=== PATIENT | male | born 2000 | race Caucasian/White ===

== ENCOUNTER 2021-01-04 23:44 | Emergency (ER) | payer BC, SELFPAY ==
[2021-01-04 23:53] VITALS: BP 146/101; PULSE 108; RESP 22; TEMP 36.6; O2SAT 100
--- NOTE | 2021-01-04 23:53 | PC.NURSE ---
VERBAL ORDER FROM ERP DR JONES FOR ZOFRAN 4MG AND DILAUDID 1MG.
[2021-01-05] MEDS: HYDROmorphone HCL INJ (*CRX) 1 MG/ML SYR IV PUSH (00:02)
[2021-01-05] MEDS: ONDANSETRON INJ 4 MG/2 ML VIAL IV PUSH (00:02)
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
[2021-01-05] MEDS: SILVER SULFADIAZINE 1% CR 400 GM JAR (*BKC) 1 APPLIC TOPICAL (00:24)
[2021-01-05] MEDS: HYDROmorphone HCL INJ (*CRX) 1 MG/ML SYR (00:28)
[2021-01-05 00:30] VITALS: BP 164/91; PULSE 67; RESP 22; O2SAT 100
[2021-01-05 01:33] VITALS: BP 159/90; PULSE 71; RESP 22; O2SAT 99
== END 2021-01-05 01:37 | disposition home or self-care (01) ==
PROVIDERS: Emergency Provider Emergency Medicine; PCP Family Medicine
DX: T21.22XA Burn of second degree of abdominal wall, initial encounter (principal); T31.0 Burns involving less than 10% of body surface; F17.290 Nicotine dependence, other tobacco product, uncomplicated; W40.8XXA Explosion of other specified explosive materials, initial encounter
CPT/HCPCS: 16020; 96374; 96375; 99284; A9270; J1170; J2405

== ENCOUNTER 2021-05-06 15:11 | Outpatient (CLI) | payer OTHER, SELFPAY ==
--- NOTE | ~2021-05-06 | XR_ITS ---
XR shoulder LT min 2V, XR clavicle LT 05/06/2021 15:41 Indication: Recent shoulder dislocation Procedure: 5 views left shoulder. 2 views left clavicle Comparison: No prior studies for comparison. Findings: There is a healed left midclavicular fracture. No acute fracture, subluxation or dislocatio n. There is anatomic alignment of the left shoulder. Surrounding osseous structures and soft tissues are unremarkable. Impression: 1: No acute bone or joint abnormality. 2: Healed left clavicular fracture. Reviewed, dictated and finalized at location B. Impression: 1: No acute bone or joint abnormality. 2: Healed left clavicular fracture. Impression: 1: No acute bone or joint abnormality. 2: Healed left clavicular fracture.
== END 2021-05-06 15:12 | disposition home or self-care (01) ==
LOC: ANHIMG 15:20
PROVIDERS: PCP Family Medicine; Visit Provider Nurse Practitioner Family
DX: M89.9 Disorder of bone, unspecified (principal)
CPT/HCPCS: 73000; 73030

== ENCOUNTER 2021-06-01 13:19 | Outpatient (CLI) | payer OTHER, SELFPAY ==
--- NOTE | ~2021-06-01 | XR_ITS ---
EXAMINATION: XR fl inj shoulder LT - MR/CT DATE: 06/01/2021 14:04 INDICATION: Left shoulder pain. Recurrent left shoulder dislocation. TECHNIQUE: A time-out was performed to verify the patient's name, date of , and procedure to b e performed. The procedure including the risks, benefits, and alternatives was discussed with the pat ient. Risks discussed included bleeding and infection. The patient understood the risks and agreed to proceed. The skin overlying the left glenohumeral joint was prepped and draped in usual sterile fash ion. Anesthetic was administered with 1% lidocaine subcutaneously. A 22 G needle was advanced under fluoroscopic guidance into the joint. Subsequently, injectate consisting of 12 mL of 1:200 Multihan ce, 1:4 1% lidocaine, and 1:4 Omnipaque 240 was instilled. The needle was removed and the entry site was cleaned and dressed. There were no immediate complications. Fluoroscopy exposure time was 0.1 m inutes. The total number of images was 3. FINDINGS: Real-time fluoroscopy demonstrates the needle and contrast in the left glenohumeral joint. IMPRESSION: 1. Successful left glenohumeral joint injection of contrast for subsequent MR arthrography. Reviewed, dictated and finalized at location A. EKEEPER CAREGIVER IMPRESSION: 1. Successful left glenohumeral joint injection of contrast for subsequent MR a rthrography.
--- NOTE | ~2021-06-01 | MR_ITS ---
EXAMINATION: MR shoulder LT w con DATE: 06/01/2021 14:31 INDICATION: Left shoulder pain. TECHNIQUE: Magnetic resonance imaging (MRI) of the left shoulder was performed following intra-artic ular gadolinium contrast injection and without intravenous contrast. Details of the glenohumeral join t injection have been dictated separately. Sequences included axial T2-weighted FS FSE, axial T1-deena ghted FS FSE, coronal oblique T1-weighted FS FSE, coronal oblique T2-weighted FSE, sagittal T2-weight ed FS FSE and sagittal T1-weighted FSE. COMPARISON: None. FINDINGS: Coracoacromial arch: The acromion undersurface is flat in morphology (type I). The coracoacromial ligament is normal. Acro mioclavicular joint is normal. Rotator cuff: The supraspinatus, infraspinatus and teres minor are normal. The subscapularis is normal. Normal rota tor cuff muscle bulk and signal. Biceps tendon, glenoid labrum and glenohumeral cartilage: Long head of the biceps tendon is normal. There is a small tear at the 12:00-11:00 position of the pérez perior glenoid labrum. There is an additional separate anterior at the 9:00-7:00 position of the post erior inferior glenoid labrum. There is a large T2 hyperintense, noncontrast-enhanced parameniscal cy st arising from the latter at the 9:00 position and extending 2.5 cm inferiorly and 14 x 12 mm in max imal transaxial dimensions. Glenohumeral cartilage is normal. Bones and other: Normal marrow signal with no edema, fracture or abnormal marrow replacing process. No abnormal fluid signal in the subacromial/subdeltoid bursa to suggest bursitis. IMPRESSION: 1. Separate tears at the superior and posterior inferior glenoid labrum, the latter with large associ ated para meniscal cyst. Reviewed, dictated and finalized at location A. EHOUSE CLERK IMPRESSION: 1. Separate tears at the superior and posterior inferior glenoid labrum, the la tter with large associated para meniscal cyst.
== END 2021-06-01 13:20 | disposition home or self-care (01) ==
PROVIDERS: PCP Family Medicine; Visit Provider Orthopaedic Surgery Hand Surgery
DX: M25.512 Pain in left shoulder (principal)
CPT/HCPCS: 23350; 73222; A9577; Q9966

== ENCOUNTER 2021-10-31 09:54 | Emergency (ER) | payer OTHER, SELFPAY ==
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
[2021-10-31 10:09] VITALS: BP 110/60; PULSE 64; RESP 16; TEMP 36.5; O2SAT 99
== END 2021-10-31 10:20 | disposition home or self-care (01) ==
PROVIDERS: Emergency Provider Nurse Practitioner Family; PCP Family Medicine
DX: J02.9 Acute pharyngitis, unspecified (principal); F17.290 Nicotine dependence, other tobacco product, uncomplicated; F12.90 Cannabis use, unspecified, uncomplicated
CPT/HCPCS: 87081; 87880; 99213; G0463

== ENCOUNTER 2024-02-05 13:45 | Outpatient (CLI) | payer OTHER, SELFPAY ==
[2024-02-05 14:21] LABS: Strep Group A RT-PCR DETECTED (Negative)
[2024-02-05 14:36] LABS: SARS-CoV-2 RNA PCR Negative (Negative)
== END 2024-02-05 13:46 | disposition home or self-care (01) ==
LOC: ANHLAB 13:47
PROVIDERS: PCP Family Medicine; Visit Provider Physician Assistant
DX: J02.9 Acute pharyngitis, unspecified (principal); R50.9 Fever, unspecified; R68.89 Other general symptoms and signs; Z20.822 Contact with and (suspected) exposure to COVID-19
CPT/HCPCS: 87635; 87651

== ENCOUNTER 2024-05-03 00:33 | Day surgery (SDC) | payer OTHER, SELFPAY ==
--- NOTE | 2024-04-23 13:43 | SUR.PREOP ---
Report to the Outpatient Waiting Room, entrance under the green pavilion located off [facility], at time _1000_ on date _05/03/2024_. Planned Procedure Time: _1200_.? Time changes happen often and if your time is changed the preop area will call you the afternoon before. - You and your visitor will be asked to self-screen and do not enter if you have any COVID symptoms. Please call surgeon if you need to reschedule. - A mask is optional within the hospital at this time. Patients may have clear liquids (water, carbonated beverages, clear teas, apple juice) until 3 hours prior to surgery with a maximum of 20 ounces. - No food from midnight until time of surgery and no smoking - Infants may have breast milk until 4 hours before surgery, formula 6 hours prior to surgery. - Children will be allowed to drink immediately following surgery.? If applicable, please bring a bottle or sippy cup to assist with drinking. Juice, water, soda, and popsicles are readily available.? For infants on formula, please bring formula the day of surgery.? Pacifiers are allowed. Take only the following medications with a SIP of water on the morning of surgery: __NA__ DO NOT STOP ANY OF YOUR OTHER PRESCRIPTION MEDICATIONS PRIOR TO SURGERY EXCEPT THE FOLLOWING Medications to discontinue per physician ___NA___ Date to take last dose_NA_ Please no make-up, nail uzbek, hairspray, perfume, deodorant, or body powder the day of surgery.? No jewelry (including any body piercings) or valuables the day of surgery, leave them at home.? Please take a shower or bath the night before, or the morning of, surgery with an antibacterial soap.? Wear comfortable, loose fitting clothing.? Children are encouraged to wear pajamas. - Jewelry must be removed prior to entering the operating room.? Rings and piercings that are not removed may be cut off. - The hospital will not accept responsibility for valuables.? - Please leave all valuables, including medications, at home the day of surgery. If you are going home after surgery, a licensed seasonal delivery driver must drive you home.? - NO public transportation without another adult if you receive anesthesia. - We recommend that an adult stay with you for 24 hours following discharge. - We also recommend that you do not drive, make important decision, drink alcoholic beverages, or take any drugs that were not prescribed by your health care provider for at least 24 hours after your discharge time. For Pediatric surgeries, we recommend two adults accompany the child home. Follow any additional instructions given to you from your surgeon. Telephone instructions given to _REMIGIO_and asked if any additional questions and then verbalized understanding. Patient advised to call surgeon office or pre surgery nurse liaison [phone] if any additional questions.
[2024-04-23 13:52] VITALS: BMI 20.2
--- NOTE | 2024-05-02 14:41 | P.PNAN_ITS ---
Anes - Initial Pre Proc Eval Procedure: Operation Date: 05/03/24 12:00 Proposed Procedures p Excision of Pilonidal Cyst - Rik Alan DO Date/Time: 05/02/24 14:41 Surgeon: Rik Alan DO Pre Op Diagnosis: Pilonida Cyst Patient Data Age: 24 Gender: M Height: 1.8 m Weight: 65.77 kg Allergies Allergy/AdvReac Type Severity Reaction Status Date / Time No Known Allergies Allergy Unknown Verified 04/23/24 13:48 Home Medications Medication Instructions Recorded Confirmed Type dicyclomine 20 mg tablet 20 mg PO TID PRN abdominal pain 03/05/24 04/23/24 Rx #90 tabs Patient hx anesthesia problems: none Family hx anesthesia problems: none Results Review: All pre-operative results and documents have been reviewed as part of the pre- operative evaluation. [facility] Past Medical History Medical History (Updated 03/05/24 @ 09:30 by NIKUNJ Elaine) Depression Diarrhea FARNAZ (generalized anxiety disorder) Guttate psoriasis Nausea Surgical History Surgical History History of shoulder surgery Family History Family History Mother Hypertension Father Hypertension Depression Alcoholism Grandparent Alcoholism Cancer Diabetes mellitus Hypertension Heart disease Social History Social History Smoking status: Current every day smoker Tobacco type: smokeless tobacco Smokeless tobacco user: chewing tobacco Second hand tobacco smoke exposure: No Alcohol intake: current Alcohol use details: OCCASIONALLY Substance use: current Substance use type: marijuana Other substance usage details: NIGHTLY Last use: 04/22/24 Living arrangements: with family Additional living arrangements comments: with parents and daughter Occupation/Education: occupation Gender identity (if verbalized by the patient): Male Sexual Orientation (if Verbalized by the Patient): Straight or Heterosexual Spiritual care concerns: No Anes - Eval Final PreProcedure Day of Procedure 05/02/24 14:41 Patient weight: normal Heart: regular rate and rhythm Lungs: clear to auscultation Airway: Mallampati scale class II Neurological: alert and oriented Last oral intake: >/= 8 hours ASA classification: III Emergent: no Anesthetic plan: proceed Anesthesia type and monitoring: general ETT and standard monitoring Results Review: All pre-operative results and documents have been reviewed as part of the pre- operative evaluation. Informed Consent: The patient's anesthetic plan and its attendant risks and benefits were discussed with the patient/family/POA. Questions were solicited and answers provided to the satisfaction of the patient/family/POA.
[2024-05-03] VITALS (8 sets, daily range): BP systolic 115–133; BP diastolic 69–88; PULSE 48–90; RESP 12–16; TEMP 36.1–36.5; O2SAT 99–100
[2024-05-03] MEDS: LACTATED RINGERS 1,000 ML 30 ML IV CONT (10:45)
--- NOTE | 2024-05-03 11:55 | WPDHPUPDATE1 ---
History and Physical Update Update Date/Time: 05/03/24 11:55 History and Physical has been reviewed, including an updated exam of the patient. There are NO changes in the patient's condition. Risks, benefits, and alternatives have been discussed and questions answered. Patient agrees to proceed with procedure.
--- NOTE | 2024-05-03 11:55 | PM.IMHP ---
H&P: HPI History of Present Illness Date/Time: 05/03/24 11:55 Chief Complaint: Pilonidal cyst Narrative: 24 yo man presents for pilonidal cyst excision. He reports no changes since last seen in office. Review of Systems Review of Systems: All systems reviewed & are unremarkable except as noted in HPI and below Constitutional: Constitutional: Denies chills, Denies fever(s), Denies headache(s) and Denies weight loss Eyes: Eyes: Denies change in vision ENT: Denies dizziness, Denies headache(s), Denies neck mass and Denies throat swelling Cardiovascular: Cardiovascular: Denies chest pain, Denies lightheadedness and Denies dyspnea Respiratory: Respiratory: Denies cough, Denies dyspnea and Denies wheezing Gastrointestinal: Gastrointestinal: Denies abdominal pain, Denies change in bowel habits, Denies nausea and Denies vomiting Genitourinary: Genitourinary: Denies hematuria and Denies dysuria Musculoskeletal: Musculoskeletal: Reports as per HPI Integumentary/Breasts: Skin/Breast: Reports as per HPI Neurologic: Denies dizziness and Denies headache(s) Allergic/Immunologic: Allergic/Immunologic: Denies throat swelling and Denies wheezing PMFSH Past Medical History Medical History (Updated 05/03/24 @ 11:58 by Rik Alan DO) Depression Diarrhea FARNAZ (generalized anxiety disorder) Guttate psoriasis Nausea Surgical History Surgical History History of shoulder surgery Family History Family History Mother Hypertension Father Hypertension Depression Alcoholism Grandparent Alcoholism Cancer Diabetes mellitus Hypertension Heart disease Social History Social History Smoking status: Current every day smoker Tobacco type: smokeless tobacco Smokeless tobacco user: chewing tobacco Second hand tobacco smoke exposure: No Alcohol intake: current Alcohol use details: OCCASIONALLY Substance use: current Substance use type: marijuana Other substance usage details: NIGHTLY Last use: 04/22/24 Living arrangements: with family Additional living arrangements comments: with parents and daughter Occupation/Education: occupation Gender identity (if verbalized by the patient): Male Sexual Orientation (if Verbalized by the Patient): Straight or Heterosexual Spiritual care concerns: No Meds Home Medications and Allergies Home Medications Medication Instructions Recorded Confirmed Type dicyclomine 20 mg tablet 20 mg PO TID PRN abdominal pain 03/05/24 04/23/24 Rx #90 tabs Allergies Allergy/AdvReac Type Severity Reaction Status Date / Time No Known Allergies Allergy Unknown Verified 05/03/24 10:54 Vital Signs Vital Signs - 24 hr 05/03/24 10:45 Temperature 97.7 F Pulse Rate 69 Respiratory Rate 14 Blood Pressure 118/74 Pulse Oximetry 100 Oxygen Delivery Room Air Exam Const: General: no acute distress and alert Orientation/consciousness: patient oriented x3 HENMT: Head: normocephalic and atraumatic Ears: hearing grossly normal bilaterally Face/Nose/Sinus: Normal nares present Mouth: Yes Normal oral and palatal mucosa present Eyes: Periorbital: periorbital findings normal Sclera: sclerae normal EOM: EOMs intact bilaterally Neck: Neck: normal visual inspection, no lymphadenopathy and trachea midline Chest: Chest palpation & inspection: normal inspection of the chest Resp: Effort & Inspection: normal respiratory effort Auscultation: clear to auscultation bilaterally Cardio: Jugular venous distension: no JVD Rate: regular rate Rhythm: regular rhythm Heart sounds: S1 normal heart sound present and S2 normal heart sound present Peripheral pulses: Peripheral pulses 2+ throughout GI: Inspection: normal to inspection GI Palp: Yes Soft to palpation, No Tenderness to palpation present (GI
[2024-05-03] MEDS: ceFAZolin 2 GM/D5W 50 ML 2 GM/50 ML BAG IVPB (11:59)
[2024-05-03] MEDS: BUPIVACAINE/EPINEPHRINE 0.5% 50 ML VIAL 20 ML INFILTRATE (12:38)
--- NOTE | 2024-05-03 12:56 | P.OP_ITS ---
Procedure Note - Detailed Date of Procedure 05/03/24 Pre-op Diagnosis Pilonidal Cyst Post-op Diagnosis Same Procedure Performed Excision of complicated pilonidal cyst Surgeon Rik Alan, DO Anesthesia General and Local ( 0.5% bupivacaine with epinephrine) Indications this is a 24-year-old man who presents with a pilonidal cyst. He 1st noticed this about 2-3 years ago. He experiences pain and swelling in the tailbone region that comes and goes. He denies any significant drainage of this and neve r required incision and drainage of abscesses. He continues to have frequent episodes of pain and swelling and would like to proceed with excision. Treatment options were discussed in detail with the patient and decision was made to proceed with excision of complicated pilonidal cyst. Findings Excision of complicated pilonidal cyst was performed. The patient was found to have a single sinus tract in the lower midline intergluteal cleft. This was about 3 cm cephalad to the coccyx. This was probed with a lacrimal probe and did not appear to be tunneling very far in either direction but was tunneling slightly to the right. A 5 cm elliptical incision was made to encompass the entire area. The cyst was completely excised and sent to the lab for pathology. Description of Procedure Procedure as well as risks, benefits, and alternatives were discussed with the patient. Written consent was obtained and placed in chart prior to procedure. Patient was brought back to surgical suite. He was placed supine on operating table. Time-out was done to confirm patient and procedure. He was then intubated by the Anesthesia Department. He was then repositioned to prone lisa- knife position on the operating table. His sacral region was prepped and draped in sterile fashion using Betadine prep. 0.5% bupivacaine with epinephrine was infiltrated locally around the pilonidal cyst. Lacrimal probes were used to identify the sinus tracts and probed for the directions that they were tracking. An elliptical incision was then made using a 10 blade scalpel to encompass the entire area. Electrocautery was used for hemostasis and for dissection down deep to the cyst cavity. Careful dissection was made around the entire cyst to excise it completely intact. The cyst was completely removed and sent to the lab for pathology. The wound bed was then inspected. Hemostasis was achieved with electrocautery. A 0.5% bupivacaine with epinephrine was infiltrated deep in the cavity. The wound bed was then irrigated with sterile saline. No other abnormalities were noted. The deep tissue was then reapproximated using 0 Vicryl simple interrupted sutures. The skin edges were then reapproximated using 2-0 Prolene vertical mattress interrupted sutures placed approximately 1 cm apart. Fluff gauze, ABD pad, and Medipore tape were then applied. The patient was then awakened from anesthesia, extubated, and transferred to recovery. Estimated Blood Loss 5 Packing No Pathology Yes ( pilonidal cyst) Complications No immediate complications Condition Stable Disposition Same day [facility] Billing Surgery - Charge Forward: Surgery Billing
[2024-05-03] MEDS: MEPERIDINE HCL INJ (*CRX) 50 MG/ML AMPUL 12.5 MG IV PUSH (13:42)
== END 2024-05-03 14:50 | disposition home or self-care (01) ==
PROVIDERS: PCP Physician Assistant; Visit Provider Surgery
PROC: (CPT 11772; principal; 2024-05-03 12:00)
DX: L05.91 Pilonidal cyst without abscess (principal); F17.220 Nicotine dependence, chewing tobacco, uncomplicated; F12.90 Cannabis use, unspecified, uncomplicated
CPT/HCPCS: 11772; 88305; J0690; J1100; J2003; J2175; J2250; J2405; J2704; J3010; J7120

== ENCOUNTER 2025-05-25 08:13 | Emergency (ER) | payer OTHER, SELFPAY ==
--- NOTE | ~2025-05-25 | CT_ITS ---
EXAMINATION: CT abdomen pelvis w con DATE: 05/25/2025 09:50 INDICATION: Right lower quadrant abdominal pain. TECHNIQUE: Computed tomography (CT) of the abdomen and pelvis was performed with 100 mL Omnipaque 350 intravenous contrast. Automated exposure control and iterative reconstruction technique were employed. The dose-length product was 273.88 mGy-cm. COMPARISON: CT abdomen and pelvis 04/11/2012 FINDINGS: The visualized portions of the lung bases demonstrate minimal atelectasis. No pleural effusion. The heart size is normal. No pericardial effusion. The liver, gallbladder, spleen, pancreas, adrenal glands, and kidneys are normal. There are no dilated loops of bowel. The appendix is normal. There are no pathologically enlarged lymph nodes. There is no free intraperitoneal fluid. There is mild thoracic spondylosis. IMPRESSION: 1. No etiology for the patient's symptoms. Reviewed, dictated and finalized at location [facility]
[2025-05-25 08:17] VITALS: BP 125/88; PULSE 71; RESP 18; TEMP 36.5; O2SAT 100
--- NOTE | 2025-05-25 08:21 | ED.GENADULT ---
HPI - General Adult General Chief complaint: Abdominal Pain Stated complaint: RLQ pain Time Seen by Provider: 05/25/25 08:16 History of Present Illness HPI narrative: 25-year-old male presenting to the emergency department for evaluation for right lower quadrant abdominal pain and right flank pain and some pain with urination that started last night. Patient reports he felt fine yesterday but had some point last night the pain began. Patient reports he has had 2 episodes of emesis as well. Patient denies any prior abdominal surgical history. Patient denies any prior history of kidney stones. Patient does smoke and vape THC and nicotine. Patient reports he had stopped his Prozac approximately 3 months ago and was unsure if this could be withdrawal symptoms. At time of evaluation patient was willing to have medications for nausea control but declined any medication for pain control. Related Data Allergies Allergy/AdvReac Type Severity Reaction Status Date / Time No Known Allergies Allergy Unknown Verified 05/25/25 08:20 Review of Systems Review of Systems: All systems reviewed & are unremarkable except as noted in HPI and below PMFSH Past Medical History Medical History Nausea Diarrhea Guttate psoriasis FARNAZ (generalized anxiety disorder) Depression Surgical History Surgical History History of excision of pilonidal cyst 05/03/24 Rik Alan DO History of shoulder surgery Family History Family History Mother Hypertension Father Hypertension Depression Alcoholism Grandparent Alcoholism Cancer Diabetes mellitus Hypertension Heart disease Social History Social History (Updated 03/21/25 @ 10:48 by Talita Gonzalez) Tobacco type: smokeless tobacco Smokeless tobacco user: chewing tobacco Second hand tobacco smoke exposure: No Alcohol intake: current Alcohol use details: OCCASIONALLY Substance use: current Substance use type: marijuana Other substance usage details: NIGHTLY Last use: 04/22/24 Education: Don't Know Difficulty w/ Childcare or Family Care: No Living arrangements: with family Additional living arrangements comments: with parents and daughter Occupation/Education: occupation Gender identity (if verbalized by the patient): Male Sexual Orientation (if Verbalized by the Patient): Straight or Heterosexual Spiritual care concerns: No Exam Narrative: APPEARANCE: Well appearing, no pain, no distress, well-nourished. HEAD: normocephalic, atraumatic. EYES: PERRLA/EOMI, conjunctivae clear. NOSE: Normal no drainage EARS:TMS clear with good light reflex. THROAT: Pharynx clear, no exudate. NECK: Supple. No adenopathy, no masses. RESPIRATORY: Airway patent, respirations nonlabored. Clear to auscultation bilaterally, no rales, rhonchi, wheezing. CARDIOVASCULAR: Regular rate and rhythm without murmurs rubs or gallops. ABDOMINAL: Right lower quadrant tenderness to palpation MUSCULOSKELETAL: Moves all extremities. Strength/ROM intact, No edema, No calf tenderness. NEURO: Alert. Cranial nerves II through XII intact. Good gait. Good coordination SKIN: Warm, dry. Normal Color PSYCHIATRIC: Normal affect/mood. Course Vital Signs Vital signs: Vital Signs Temperature 97.7 F 05/25/25 08:17 Pulse Rate 71 05/25/25 08:17 Respiratory Rate 18 05/25/25 08:17 Blood Pressure 125/88 05/25/25 08:17 Pulse Oximetry 100 05/25/25 08:17 Temperature 97.7 F 05/25/25 08:17 Pulse Rate 71 05/25/25 08:17 Respiratory Rate 18 05/25/25 08:17 Blood Pressure 125/88 05/25/25 08:17 Pulse Oximetry 100 05/25/25 08:17 Medical Decision Making [facility] Narrative Medical decision making narrative: 25 old male presents emergency department for evaluation for lower abdominal pain. Patient is currently afebrile with no leukocytosis hemoglobin of 14.9. No acute abnormalities on CMP including normal lipase AST ALT alk-phos. Urine was positive for ketones negative for blood or evidence infection. CT abdomen pelvis was ordered to evaluate for colitis versus appendicitis. CT scan was negative. On re-evaluation patient states he does feel improved. Patient was updated results of his workup and imaging. All questions concerns were addressed. Patient's symptoms may be secondary to muscular wall strain versus mesenteric adenitis. Low concern for colitis, diverticulitis, acute cholecystitis, appendicitis with negative imaging negative labs. Patient was comfortable the plan for discharge and close follow-up. Differential Diagnosis Differential Diagnosis: Colitis, diverticulitis, appendicitis, urinary tract infection, ureteral calculi. Vital Signs Vital Signs: Vital Signs Temperature 97.7 F 05/25/25 08:17 Pulse Rate 71 05/25/25 08:17 Respiratory Rate 18 05/25/25 08:17 Blood Pressure 125/88 05/25/25 08:17 Pulse Oximetry 100 05/25/25 08:17 Temperature 97.7 F 05/25/25 08:17 Pulse Rate 71 05/25/25 08:17 Respiratory Rate 18 05/25/25 08:17 Blood Pressure 125/88 05/25/25 08:17 Pulse Oximetry 100 05/25/25 08:17 Lab Data Lab results reviewed: Yes I reviewed the patient's lab results. 05/25/25 08:23 05/25/25 08:23 Labs: Lab Results 05/25/25 05/25/25 Range/Units 08:23 09:06 WBC 5.1 (4.5-10.0) K/mm3 RBC 5.03 (4.6-6.20) M/mm3 Hgb 14.9 (14.0-18.0) g/dL Hct 42.9 (42.0-52.0) % MCV 85.3 (80-100) fl MCH 29.6 (26-34) pg MCHC 34.7 (32-36) g/dl RDW 11.9 (11.5-14.5) % Plt Count 266 (150-375) k/mm3 MPV 10.7 H (7.4-10.4) fl Immature Gran % (Auto) 0.2 (0-0.5) % Neut % (Auto) 56.8 (45.5-73.1) % Lymph % (Auto) 33.0 (18.3-44.2) % [place] % (Auto) 9.2 H (2.6-8.5) % Eos % (Auto) 0.6 (0-4.4) % Baso % (Auto) 0.2 (0.2-1.2) % Lymph # (Auto) 1.69 (0.9-3.2) K/mm3 [place] # (Auto) 0.5 (0.1-0.6) K/mm3 Eos # (Auto) 0.0 (0-0.3) K/mm3 Baso # (Auto) 0.0 (0.0-0.1) K/mm3 Abs Immat Gran (auto) 0.01 (0.00-0.031) K/mm3 Absolute Neuts (auto) 2.9 (1.3-6.7) K/mm3 Absolute Nucleated RBC 0.000 (0.0-0.012) K/mm3 Nucleated RBC % 0.0 (0.0-0.2) % Sodium 139 (137-145) mmol/L Potassium 3.7 (3.4-5.0) mmol/L Chloride 107 (98-107) mmol/L Carbon Dioxide 24 (22-30) mmol/L Anion Gap 8 (4-12) mmol/L BUN 14 (9-20) mg/dL Creatinine 1.04 (0.7-1.3) mg/dL Estim Creat Clear Calc 88 ml/min Estimated GFR > 60 (59 - ) Glucose 91 (65-110) mg/dL Calcium 9.3 (8.4-10.2) mg/dL Total Bilirubin 0.7 (0.2-1.3) mg/dL AST 33 (17-59) U/L ALT 20 (6-50) U/L Alkaline Phosphatase 64 (38-126) U/L Total Protein 7.5 (6.3-8.2) g/dL Albumin 4.5 (3.5-5.1) g/dL Lipase 101 (23-300) U/L Urine Color Yellow (Yellow) Urine Appearance Cloudy H (Clear) Urine pH 5.5 (5.0-9.0) Ur Specific [place] 1.030 (1.001-1.035) Urine Protein Negative (Negative) mg/dL Urine Glucose (UA) Negative (Negative) mg/dL Urine Ketones 1+ H (Negative) mg/dL Ur Blood (Man) Negative (Negative) Urine Nitrate Negative (Negative) Urine Bilirubin Negative (Negative) Urine Urobilinogen 1.0 (<2.0) mg/dL Leukocyte Esterase Rfl Negative (Negative) KAYDEN/UL Urine RBC 0-2 (0-2) /hpf Urine WBC 0-5 (0-3) /hpf Ur Squamous Epith Cells None seen (Few) /hpf Urine Bacteria None seen /hpf Urine Casts 0-2 Urine Mucus Present /lpf Imaging Data Radiologist's impression: Impressions Abdomen/Pelvis CT 05/25/25 09:53 IMPRESSION: 1. No etiology for the patient's symptoms. Discharge Plan Discharge Clinical Impression: Abdominal pain, lower Patient Disposition: Home Condition: Stable Instructions: Antibiotic Form, Abdominal Pain (ED) Additional Instructions: Tylenol and ibuprofen for pain control. Clear liquid diet for the next 1-3 days. Advance to a bland diet as tolerated. Have close follow-up with your primary care physician. If you have any worsening symptoms please call or return to the emergency department. Patient Language: [place] Prescriptions: No Action dicyclomine 20 mg tablet 20 mg PO TID PRN (Reason: abdominal pain) Qty: 90 2RF Patient Comments: per patient he has prescription but does not take it buspirone 10 mg tablet 10 mg PO BID Qty: 60 2RF fluticasone propionate 50 mcg/actuation spray,suspension 1 spray intranasal Q12H Qty: 16 2RF Rx Instructions: administer into each nostril alprazolam 0.5 mg tablet 0.25 mg PO DAILY PRN (Reason: anxiety) Qty: 10 0RF fluoxetine [Prozac] 10 mg capsule 10 mg PO DAILY Qty: 30 2RF Follow-up/Referrals: Roldan Thrasher MD [Primary Care Provider, Family Practice]
[2025-05-25] MEDS: LACTATED RINGERS 1,000 ML 999 ML IV CONT (08:24)
[2025-05-25] MEDS: ONDANSETRON INJ 4 MG/2 ML VIAL IV PUSH (08:25)
[2025-05-25 08:34] LABS: Hematocrit 42.9 % (42.0-52.0); Hemoglobin 14.9 g/dL (14.0-18.0); Immature Granulocyte Percent A 0.2 % (0-0.5); Lymphocytes Absolute Auto 1.69 K/mm3 (0.9-3.2); Mean Corpuscular HGB Conc 34.7 g/dl (32-36); Mean Corpuscular Hemoglobin 29.6 pg (26-34); Mean Corpuscular Volume 85.3 fl (80-100); Nucleated Red Blood Cells Absolute Auto 0.000 K/mm3 (0.0-0.012); Nucleated Red Blood Cells Perc 0.0 % (0.0-0.2); Platelet Count Result 266 k/mm3 (150-375); Red Blood Count 5.03 M/mm3 (4.6-6.20); White Blood Count 5.1 K/mm3 (4.5-10.0)
[2025-05-25 08:49] LABS: Alanine Aminotransferase 20 U/L (6-50); Albumin Level 4.5 g/dL (3.5-5.1); Alkaline Phosphatase 64 U/L (38-126); Anion Gap 8 mmol/L (4-12); Aspartate Amino Transferase 33 U/L (17-59); Bilirubin,Total 0.7 mg/dL (0.2-1.3); Blood Urea Nitrogen 14 mg/dL (9-20); Calcium 9.3 mg/dL (8.4-10.2); Carbon Dioxide 24 mmol/L (22-30); Chloride 107 mmol/L (98-107); Estimated CRCL calculation 88 ml/min; Estimated Glomerular Filt Rate > 60; Glucose 91 mg/dL (65-110); Lipase 101 U/L (23-300); Potassium 3.7 mmol/L (3.4-5.0); Sodium 139 mmol/L (137-145); Total Protein 7.5 g/dL (6.3-8.2)
[2025-05-25] MEDS: HYDROmorphone HCL INJ (*CRX) 1 MG/ML SYR 0.5 MG IV PUSH (09:09)
[2025-05-25 09:29] LABS: Add Urine Microscopic? YES; Appearance Urine Cloudy (Clear); Glucose Urine UA Negative (Negative); Leukocyte Esterase Ur Negative LEU/UL (Negative); Nitrate Urine Negative (Negative); Non Pathogenic Casts 0-2; Specific Grav Ur 1.030 (1.001-1.035)
== END 2025-05-25 10:22 | disposition home or self-care (01) ==
PROVIDERS: Emergency Provider Emergency Medicine; PCP Family Medicine
DX: R10.31 Right lower quadrant pain (principal); L40.4 Guttate psoriasis; F41.1 Generalized anxiety disorder; F32.A Depression, unspecified; F17.290 Nicotine dependence, other tobacco product, uncomplicated; F17.210 Nicotine dependence, cigarettes, uncomplicated; F17.220 Nicotine dependence, chewing tobacco, uncomplicated; Z79.899 Other long term (current) drug therapy
CPT/HCPCS: 36415; 74177; 80053; 81001; 83690; 85025; 96361; 96374; 96375; 99284; J1171; J2405; J7120; Q9967